=== PATIENT | female | born 1945 | race Caucasian/White ===

== ENCOUNTER → 2016-12-15 | Day surgery (SDC) | payer MEDICARE ==
[~2016-12-15] VITALS: Ht 160 cm; Wt 63.5 kg
[~2016-12-15] MED LIST: CALC500T27 PO; CEFAZOLIN 1GM IVPB FOR OMNI 50 ML IV PRN; DEXAMETHASONE SOD PHOS 20 MG/5 ML VIAL. ONE; EPINEPHRINE 30 MG/30 ML VIAL. ONE; FENTANYL PF 100 MCG/2 ML VIAL. IV PRN; FENTANYL PF 250 MCG/5 ML VIAL. ONE; HYDROMORPHONE 2 MG/ML VIAL. IV PRN; IV RINGERS,LACTATED 1000ML 1,000 ML IV SCH; LIDOCAINE 1% 1 ML SYRINGE. ID PRN; LIDOCAINE 2% 100 MG/5 ML DISP.SYRIN. ONE; LISI10TA2 PO; METF500T4 PO; MIDAZOLAM HCL 2 MG/2 ML VIAL. ONE; MORPHINE SULFATE 2 MG/ML DISP.SYRIN. IV PRN; MULT-245 PO; ONDANSETRON PF 4 MG/2 ML VIAL. IV PRN; ONDANSETRON PF 4 MG/2 ML VIAL. ONE; OXYC-244 PO; OXYCODONE/APAP 7.5/325 TABLET. PO ONE; PRAV40TA2 PO; PROCHLORPERAZINE 10 MG/2 ML VIAL. IV PRN; PROPOFOL 20 ML IV ONE; ROCURONIUM 50 MG/5 ML VIAL. ONE; ROPIVacaine 0.5% PF 30 ML VIAL. ONE; SEVOFLURANE 61 TO 120 MINUTES. IH ONE
--- NOTE | 2016-12-15 18:18 | DISCH ---
DISCHARGE INSTRUCTIONS Condition on Discharge Condition on Discharge: Stable Activity After Discharge Activity Instructions for Disc: Other, see below (no active lifting of left elbow away from body, may eat and grasp with arm at side) Other activity instructions: immobilizer on at night, remove daytime for pendulum swings Wound Incision Care Wound/Incision Care: Ice to area for comfort Other wound/incision instructi: remove dressing 2 days may then shower Community/Resources/Services Services at Discharge: PT EVALUATE & TREAT Contacting the DR. after DC Call your doctor for: Concerns you may have Follow-Up Follow up with: Seven 1 week LEA CONTEH MD Dec 15, 2016 18:18
--- NOTE | 2016-12-15 18:34 | PDOC ---
BRIEF OPERATIVE NOTE Date: Dec 15, 2016 Pre-Op Diagnosis rotator cuff tear Post-Op Diagnosis same plus ac djd, chronic proximal biceps rupture Procedure Performed left shoulder scope, rotator cuff repair, decompression, distal clavicle excision Surgeon Seven Anesthesia Type: General, Regional Blood Loss 25cc Findings above, large retracted rotator cuff tear Complications none LEA CONTEH MD Dec 15, 2016 18:34
[2016-12-15 19:04] VITALS: BP 120/65
--- NOTE | 2016-12-17 09:51 | OP ---
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 PROCEDURES: Left shoulder arthroscopy, subacromial decompression, distal clavicle excision, mini open rotator cuff repair. SURGEON: Ronald Amezcau M.D. ANESTHESIA: General endotracheal plus scalene block. ESTIMATED BLOOD LOSS: 25 mL. COMPLICATIONS: None. OPERATIVE INDICATIONS: The patient is a 71-year-old female with left shoulder pain and weakness, unresponsive to nonoperative treatment, severely affecting her sleep and activities of daily living. I had gone over with her possibility of additional nonoperative management versus operative treatment, the long recovery. Possibility of nonhealing, nerve or blood vessel damage, medical or other anesthetic complications, infection among others. All her questions were answered. Consent was obtained and she agrees to proceed with operative evaluation and treatment. DESCRIPTION OF PROCEDURE: The patient was identified, procedure verified, patient placed in the supine position on the operating table. After adequate amounts of general endotracheal anesthesia and preexisting scalene block were obtained, she was placed in the decubitus position, left side up. All bony prominences were well padded and she was placed in the arthroscopic arm [place] with a total of 10 pounds of traction. After timeout was performed, the patient and procedure identified and verified, a standard posterior portal was established and anterior portal established using spinal needle localization and the shoulder joint was systematically examined. Glenohumeral joint was noted to be in good condition. She did indeed have a large retracted tear of the supraspinatus and infraspinatus tendons, normal capsule ligamentous structures and bare area of the humerus, the biceps tendon long head was previously ruptured. Superior labrum was lightly debrided. Subscapularis tendon appeared intact. Given the significant retraction of rotator cuff, I used the arthroscopic shaver and probed to release ____ the undersurface of the rotator cuff to improve mobility, subacromial space was then entered. Tissue quality was reasonable to affect to repair and therefore her large subacromial spur was debrided back to a type 1 acromion using cutting block technique. Distal clavicle was narrowed and arthritic and was the distal 1 cm of the clavicle was removed with overlying joint capsule preserved for stability. Any bony fragments were then removed. Superior aspect of the rotator cuff was mobilized to allow adequate repair and the arthroscopic bur was used to prepare the footprint area up to a good bleeding bony surface. Anchors were then placed initially a total of two [employer]hew HEALICOIL 4.75 anchors to the posterior one of which had excellent bite and anterior which actually had poor broaches and the position was changed a bit more anterior and medial and replaced with a size 5.5 HEALICOIL anchor ____ with two suture limbs each, although the rotator cuff was well mobilized for best visualization due to the complex nature of the rotator cuff tear. I elected to convert to a mini open rotator cuff procedure with the lateral portal was enlarged to make a small 3 cm deltoid splitting incision, careful to remain proximal to the course of the axillary nerve. The [employer] arthroscopic ____ passer was used to pass sutures in a mattress fashion. Toes were tied to affect the medial row repair using sliding-locking knots backed up by alternating post-half hitches. Lateral row repair was carried out in a crossing fashion with the additional use of traction suture placed in the simple fashion previously to supplement the repair on the posterior limb and anchored laterally with Multifix S anchors x 2 laterally, excellent Latarjet repair was noted under both all degrees of internal and external rotation. Irrigation carried out with normal saline solution. Fascia was closed with buried Vicryl suture as well as the subcutaneous layers subcuticular repair of the mini open incision and portals was carried out. Steri-Strips and Mastisol were applied. Sterile dressings were applied. The patient was placed into an immobilizer, extubated and transferred to postop holding in stable condition having tolerated the procedure well. RONALD AMEZCUA MD DR: JAYNA/bharat JOB#: [id number] / [id number] SADIQ Corley MD
== END | disposition home or self-care (01) ==
LOC: SURG 09:00
PROVIDERS: ATTEND Orthopaedic Surgery
DX: S46.012A Strain of muscle(s) and tendon(s) of the rotator cuff of left shoulder, initial encounter (principal); X58.XXXA Exposure to other specified factors, initial encounter; E78.00 Pure hypercholesterolemia, unspecified; I10 Essential (primary) hypertension; M19.90 Unspecified osteoarthritis, unspecified site; E11.9 Type 2 diabetes mellitus without complications; F17.200 Nicotine dependence, unspecified, uncomplicated; Y99.9 Unspecified external cause status; Y92.9 Unspecified place or not applicable; Y93.9 Activity, unspecified; Z90.710 Acquired absence of both cervix and uterus; Z98.49 Cataract extraction status, unspecified eye; Z72.89 Other problems related to lifestyle; Z87.39 Personal history of other diseases of the musculoskeletal system and connective tissue
CPT/HCPCS: 29824; 29826; 29827; 82947; C1713; J0171; J0690; J1100; J2405; J2704; J2795; J2250; J3010